=== PATIENT | female | born 1945 | race Hispanic/Latino ===

== ENCOUNTER → 2019-12-25 | Outpatient (CLI) | payer MEDICARE | LOC: RAD 11:44 | PROVIDERS: ATTEND Family Medicine | DX: M25.512 Pain in left shoulder (principal) ==

== ENCOUNTER 2023-05-24 09:09 | Inpatient (IN) | payer MEDICARE ==
[~2023-05-24] VITALS: Ht 167.6 cm; Wt 76.3 kg
[2023-05-24] MEDS ORDERED: SODIUM CHLORIDE 0.9% 1000ML 1,000 ML IV SCH ×2 (09:30→11:00)
[2023-05-24] MEDS ORDERED: DILTIAZEM HCL 125 ML IV SCH (09:30)
[2023-05-24] MEDS ORDERED: ASPIRIN EC81 MG PO (10:16)
[2023-05-24] MEDS ORDERED: AMLODIPINE BESYL5 MG PO (10:16)
[2023-05-24] MEDS ORDERED: ONDANSETRON HCL INJ 2MG/ML 2ML 2 MG/ML VIAL IV STA (10:53)
[2023-05-24] MEDS ORDERED: FAMOTIDINE 20 MG/2 ML VIAL IV STA (10:54)
[2023-05-24] MEDS ORDERED: SODIUM CHLORIDE 0.9% 1000ML 1,000 ML ONE ×2 (11:25→14:50)
[2023-05-24] MEDS ORDERED: FAMOTIDINE 20 MG/2 ML VIAL IV ONE (11:25)
[2023-05-24] MEDS ORDERED: ONDANSETRON HCL INJ 2MG/ML 2ML 2 MG/ML VIAL ONE (11:25)
[2023-05-24] MEDS ORDERED: IOPAMIDOL 370 MG/ML 100 ML INFUS..BTL INJ ONE (12:26)
[2023-05-24] MEDS ORDERED: VALSARTAN320 MG (12:37)
[2023-05-24] MEDS ORDERED: ATORVASTATIN CA20 MG PO (12:37)
[2023-05-24] MEDS ORDERED: KETOROLAC TROMETHAMINE 30 MG/ML VIAL IV STA (13:28)
[2023-05-24] MEDS ORDERED: SODIUM CHLORIDE 0.9% 100 ML ONE ×2 (13:33→13:38)
[2023-05-24] MEDS ORDERED: KETOROLAC TROMETHAMINE 30 MG/ML VIAL ONE (13:33)
[2023-05-24] MEDS ORDERED: CEFEPIME HCL 1 GM VIAL ONE (13:38)
[2023-05-24] MEDS: CEFEPIME 2 GM in SODIUM CHLORIDE 0.9% 100 ML IV SCH ×2 (13:39→22:13)
[2023-05-24] MEDS ORDERED: KETOROLAC TROMETHAMINE 30 MG/ML VIAL IV PRN (14:00)
[2023-05-24] MEDS ORDERED: ACETAMINOPHEN 325 MG TAB PO PRN (14:00)
[2023-05-24] MEDS ORDERED: Azithromycin IV 500 MG 10 ML VIAL ONE (14:50)
[2023-05-24] MEDS ORDERED: SODIUM CHLORIDE 0.9% 250ML 250 ML ONE (14:50)
[2023-05-24] MEDS: SODIUM CHLORIDE 0.9% 1000ML 1,000 ML IV SCH (14:50)
[2023-05-24] MEDS ORDERED: HYDRALAZINE HCL 20 MG/ML VIAL IV PRN (17:45)
[2023-05-24] MEDS ORDERED: MELATONIN 5 MG TABLET PO PRN (17:45)
[2023-05-24] MEDS ORDERED: FAMOTIDINE 20 MG TAB PO PRN (17:45)
[2023-05-24] MEDS ORDERED: HYDROCODONE/APAP 5MG-325MG TAB PO PRN (17:45)
[2023-05-24] MEDS: Morphine 2mg Syringe 2 MG/ML SYR IV PRN (19:57)
[2023-05-24] MEDS: ONDANSETRON HCL INJ 2MG/ML 2ML 2 MG/ML VIAL IV PRN (19:59)
[2023-05-24 21:30] VITALS: BP 125/49; PULSE 95; RESP 18; TEMP 97.9; O2SAT 98
[2023-05-24] MEDS: ATORVASTATIN 20 MG TAB PO SCH (22:13)
[2023-05-25] VITALS (9 sets, daily range): BP systolic 107–132; BP diastolic 49–68; PULSE 90–95; RESP 17–20; TEMP 97–98.5; O2SAT 95–99
[2023-05-25] MEDS: Morphine 2mg Syringe 2 MG/ML SYR IV PRN ×2 (00:16→11:12)
[2023-05-25] MEDS: ONDANSETRON HCL INJ 2MG/ML 2ML 2 MG/ML VIAL IV PRN ×3 (00:16→17:39)
[2023-05-25] MEDS: SODIUM CHLORIDE 0.9% 1000ML 1,000 ML IV SCH (04:09)
[2023-05-25] MEDS: CEFEPIME 2 GM in SODIUM CHLORIDE 0.9% 100 ML IV SCH ×3 (05:46→20:49)
[2023-05-25 06:18] LABS: BASOPHILS # (AUTO) 0.1 (0.0-0.1); BASOPHILS % 0.7 % (0.0-1.0); EOSINOPHILS # (AUTO) 0.4 (0.0-0.4); EOSINOPHILS % 4.7 % (0.0-6.0); HEMOGLOBIN 9.7 g/dL (12.0-16.0); LYMPHOCYTES # (AUTO) 1.6 (1.0-3.2); LYMPHOCYTES % 19.7 % (18.0-39.1); MEAN CORPUSCULAR HEMOGLOBIN 29.2 pg (28-32); MEAN CORPUSCULAR HGB CONC 31.3 g/dL (31-35); MEAN CORPUSCULAR VOLUME 93.4 fL (81-99); MONOCYTES # (AUTO) 0.7 (0.2-0.8); MONOCYTES % 8.8 % (4.4-11.3); NEUTROPHILS # (AUTO) 5.3 (2.1-6.9); NEUTROPHILS % 65.7 % (38.7-80.0); PLATELET COUNT 326 x10e3/uL (140-360); RED BLOOD COUNT 3.32 x10e6/uL (3.6-5.1); RED CELL DISTRIBUTION WIDTH 12.8 % (11.7-14.4); WHITE BLOOD COUNT 8.04 x10e3/uL (4.8-10.8)
[2023-05-25 07:09] LABS: ALBUMIN 2.4 g/dL (3.5-5.0); ALBUMIN/GLOBULIN RATIO 0.6 (0.8-2.0); ANION GAP 12.2 mmol/L (8-16); BILIRUBIN,TOTAL 0.7 mg/dL (0.2-1.2); CALCIUM 8.8 mg/dL (8.4-10.2); CREATININE, SERUM 1.05 mg/dL (0.57-1.11); POTASSIUM 4.2 mmol/L (3.5-5.1); TOTAL PROTEIN 6.7 g/dL (6.5-8.1)
[2023-05-25] MEDS: AMLODIPINE BESYLATE 5 MG TAB PO SCH (09:00)
[2023-05-25] MEDS ORDERED: IOPAMIDOL 370 MG/ML 100 ML INFUS..BTL INJ ONE (12:23)
[2023-05-25] MEDS ORDERED: SEVOFLURANE INHAL SOLN 250 ML PEN BTL ONE (12:47)
[2023-05-25] MEDS ORDERED: SUCCINYLCHOLINE CHLORIDE 20 MG/ML 10ML VIAL ONE ×2 (12:47→14:54)
[2023-05-25] MEDS ORDERED: ONDANSETRON HCL INJ 2MG/ML 2ML 2 MG/ML VIAL ONE (12:47)
[2023-05-25] MEDS ORDERED: ROCURONIUM BROMIDE 10 MG/ML 5ML VIAL IV ONE (12:47)
[2023-05-25] MEDS ORDERED: PROPOFOL IV EMULSION 10 MG/ML 20 ML VIAL ONE (12:47)
[2023-05-25] MEDS ORDERED: LIDOCAINE HCL 2% LOCAL INJ 5 ML SDV VIAL INJ ONE (12:47)
[2023-05-25] MEDS ORDERED: DEXAMETHASONE SOD PHOS INJ 4 MG/ML SDV ONE (12:47)
[2023-05-25] MEDS ORDERED: LIDOCAINE HCL 4% 50 ML BTL ONE (12:59)
[2023-05-25] MEDS ORDERED: ALBUTEROL/IPRATROPIUM 3 ML NEB NEB ONE (20:45)
[2023-05-25] MEDS: ATORVASTATIN 20 MG TAB PO SCH (20:50)
[2023-05-26] VITALS (7 sets, daily range): BP systolic 123–156; BP diastolic 48–63; PULSE 89–112; RESP 18–22; TEMP 97.4–98.7; O2SAT 87–99
[2023-05-26] MEDS: CEFEPIME 2 GM in SODIUM CHLORIDE 0.9% 100 ML IV SCH ×2 (05:08→13:35)
[2023-05-26 06:00] LABS: BASOPHILS % 0.3 % (0.0-1.0); HEMATOCRIT 32.3 % (34.2-44.1); HEMOGLOBIN 10.4 g/dL (12.0-16.0); LYMPHOCYTES % 13.5 % (18.0-39.1); MEAN CORPUSCULAR HEMOGLOBIN 29.2 pg (28-32); MEAN CORPUSCULAR HGB CONC 32.2 g/dL (31-35); MEAN CORPUSCULAR VOLUME 90.7 fL (81-99); MONOCYTES # (AUTO) 0.3 (0.2-0.8); NEUTROPHILS % 81.7 % (38.7-80.0); PLATELET COUNT 370 x10e3/uL (140-360); RED BLOOD COUNT 3.56 x10e6/uL (3.6-5.1); RED CELL DISTRIBUTION WIDTH 12.5 % (11.7-14.4); WHITE BLOOD COUNT 7.33 x10e3/uL (4.8-10.8)
[2023-05-26 06:53] LABS: ALBUMIN 2.5 g/dL (3.5-5.0); ALBUMIN/GLOBULIN RATIO 0.6 (0.8-2.0); ANION GAP 10.4 mmol/L (8-16); BILIRUBIN,TOTAL 0.6 mg/dL (0.2-1.2); CALCIUM 8.7 mg/dL (8.4-10.2); CREATININE, SERUM 1.12 mg/dL (0.57-1.11); POTASSIUM 4.4 mmol/L (3.5-5.1)
[2023-05-26] MEDS: AMLODIPINE BESYLATE 5 MG TAB PO SCH (08:55)
[2023-05-26] MEDS ORDERED: IOPAMIDOL 370 MG/ML 100 ML INFUS..BTL INJ ONE (09:36)
[2023-05-26] MEDS ORDERED: ALBUTEROL/IPRATROPIUM 3 ML NEB NEB SCH (13:00)
[2023-05-26] MEDS ORDERED: PROVENTIL HFA6.7 GM INH (13:20)
[2023-05-26] MEDS ORDERED: LEVOFLOXACIN250 MG PO (13:20)
[2023-05-26] MEDS ORDERED: HYDROCODON-ACE1 EA12 PO (13:20)
[2023-05-27] MEDS ORDERED: AZITHROMYCIN 250 MG TAB PO SCH (09:00)
== END 2023-05-26 17:28 | disposition home or self-care (01) | DRG 180 ==
LOC: FSED 09:25 → ERHOLD 13:59 → MED/SURG2 21:04
PROVIDERS: ADMIT Family Medicine Adult Medicine; ATTEND Family Medicine Adult Medicine
PROC: 0BD48ZX Extraction of Right Upper Lobe Bronchus, Via Natural or Artificial Opening Endoscopic, Diagnostic (ICD-10-PCS; principal; 2023-05-25 13:32)
PROC: 0BD18ZX Extraction of Trachea, Via Natural or Artificial Opening Endoscopic, Diagnostic (ICD-10-PCS; 2023-05-25 13:32)
DX: C34.11 Malignant neoplasm of upper lobe, right bronchus or lung (principal); J18.8 Other pneumonia, unspecified organism; J96.01 Acute respiratory failure with hypoxia; C78.7 Secondary malignant neoplasm of liver and intrahepatic bile duct; C79.51 Secondary malignant neoplasm of bone; I10 Essential (primary) hypertension; E78.5 Hyperlipidemia, unspecified; R53.1 Weakness; N28.1 Cyst of kidney, acquired; Z87.891 Personal history of nicotine dependence; Z79.82 Long term (current) use of aspirin; Z79.899 Other long term (current) drug therapy; Z79.890 Hormone replacement therapy
CPT/HCPCS: 0223U; 31623; 31625; 36415; 70470; 71046; 71260; 74177; 80053; 84443; 85025; 87040; 87071; 87086; 87205; 87400; 88112; 88172; 88173; 88305; 88342; 94640; 94799; 96374; 96375; 99284; J0330; J0692; J0694; J1100; J1885; J2001; J2270; J2405; J7030; J7050; Q9967